=== PATIENT | male | born 1965 | race Caucasian/White ===

== ENCOUNTER 2022-05-15 21:16 | Emergency (ER) | payer MEDICAID, OTHER ==
[2022-05-15] MEDS ORDERED: Ondansetron 4 MG Tab.DIS PO ONE (21:17)
[2022-05-15] MEDS ORDERED: Ondansetron 4 MG/2 ML SDV IVPUSH ONE (21:32)
[2022-05-15] MEDS ORDERED: Sodium Chloride 0.9% 1,000 ML IV ONE (21:32)
[2022-05-15] MEDS ORDERED: Sodium Chloride 0.9% 10 ML Syringe FLUSH PRN (21:32)
[2022-05-15 22:56] LABS: CORONAVIRUS COVID-19 NAA NEGATIVE (NEGATIVE)
[2022-05-15] MEDS ORDERED: Ondansetron 4 MG Tab.DIS ONE (23:21)
== END 2022-05-15 23:25 | disposition home or self-care (01) ==
LOC: DL.ED 21:16
DX: R11.2 Nausea with vomiting, unspecified (principal); T43.205A Adverse effect of unspecified antidepressants, initial encounter; Z20.822 Contact with and (suspected) exposure to COVID-19
CPT/HCPCS: 0240U; 36415; 80053; 83605; 83735; 85025; 86140; 96361; 96374; 99284-25; A9270-GY; J2405; J3490; J7030